=== PATIENT | female | born 1975 | race Caucasian/White ===

== ENCOUNTER 2020-06-13 17:42 | Emergency (ER) | payer BC, OTHER ==
[~2020-06-13] VITALS: Ht 160 cm; Wt 70.5 kg
[~2020-06-13 17:42] MED LIST: ALBU17IN INH; BUPR15TA PO; CELE20TA PO; COLA100C5 PO; DRIS50003 PO; FLUO20CA22 PO; LEVO75TA4 PO; OMEP1CAP73 PO; TRAZ-252 PO; TRAZ1TAB10 PO; XANA0.25 PO
[2020-06-13] MEDS ORDERED: KETOROLAC 30 MG/ML 1ML VIAL IV ONE (18:45)
[2020-06-13] MEDS ORDERED: NS 1,000 ML IV ONE (18:45)
[2020-06-13] MEDS ORDERED: DICYCLOMINE 10 MG CAP PO ONE (18:45)
[2020-06-13 18:53] LABS: BASO % 0.3 % (0.0-1.0); EOS # 0.1 10^3/uL (0.0-0.5); EOS % 0.6 % (0.0-3.0); HEMATOCRIT 42.1 % (36.0-47.0); HEMOGLOBIN 14.4 g/dl (12.0-15.5); LYMPH # 1.7 10^3/uL (1.5-5.0); LYMPH % 13.5 % (24.0-44.0); MEAN CORPUSCULAR HEMOGLOBIN 30.2 pg (27.0-33.0); MEAN CORPUSCULAR HGB CONC 34.2 g/dl (32.0-36.5); MEAN CORPUSCULAR VOLUME 88.3 fl (80.0-96.0); MONO # 0.8 10^3/uL (0.0-0.8); MONO % 6.3 % (0.0-5.0); NEUTROPHILS # 9.8 10^3/uL (1.5-8.5); NEUTROPHILS % 78.9 % (36.0-66.0); PLATELET COUNT, AUTOMATED 293 10^3/uL (150-450); RED BLOOD COUNT 4.77 10^6/uL (4.00-5.40); WHITE BLOOD COUNT 12.4 10^3/uL (4.0-10.0)
[2020-06-13 19:25] LABS: ALBUMIN 3.6 GM/DL (3.2-5.2); ALT/SGPT 33 U/L (12-78); BILIRUBIN,DIRECT < 0.1 MG/DL (0.0-0.2); BILIRUBIN,TOTAL 0.3 MG/DL (0.2-1.0); BLOOD UREA NITROGEN 21 MG/DL (7-18); CALCIUM LEVEL 8.8 MG/DL (8.5-10.1); CARBON DIOXIDE LEVEL 23 MEQ/L (21-32); CHLORIDE LEVEL 110 MEQ/L (98-107); CREATININE FOR GFR 0.68 MG/DL (0.55-1.30); GLOMERULAR FILTRATION RATE > 60.0 (>58); GLUCOSE, FASTING 91 MG/DL (70-100); LIPASE 134 U/L (73-393); POTASSIUM SERUM 3.9 MEQ/L (3.5-5.1); SODIUM LEVEL 141 MEQ/L (136-145); TOTAL PROTEIN 6.6 GM/DL (6.4-8.2)
[2020-06-13] MEDS ORDERED: ISOVUE-370 76% 100ML VIAL As Ordered ONE (19:54)
[2020-06-13] MEDS ORDERED: MORPHINE 4 MG/ML 1ML VIAL/SYRINGE (J2270) IV ONE (20:00)
--- NOTE | 2020-06-13 20:33 | REPVR ---
PROCEDURE INFORMATION: Exam: CT Abdomen And Pelvis With Contrast Exam date and time: 06/13/2020 8:08 PM Age: 45 years old Clinical indication: Abdominal pain; Additional info: Upper abd pain TECHNIQUE: Imaging protocol: Computed tomography of the abdomen and pelvis with intravenous contrast. Axial, coronal and sagittal reformatted images were created and reviewed. Radiation optimization: All CT scans at this facility use at least one of these dose optimization techniques: automated exposure control; mA and/or kV adjustment per patient size (includes targeted exams where dose is matched to clinical indication); or iterative reconstruction. Contrast material: ISO 370; Contrast volume: 100 ml; Contrast route: INTRAVENOUS (IV); COMPARISON: No relevant prior studies available. FINDINGS: Mediastinal space: Small hiatal hernia. Liver: Unremarkable. Gallbladder and bile ducts: No radiodense gallstones. No biliary ductal dilatation. Pancreas: Unremarkable. Spleen: Unremarkable. Adrenals: Unremarkable. Kidneys and ureters: No mass. No radiodense calculi. No hydronephrosis. Stomach and bowel: Status post gastric bypass surgery. No obstruction. No bowel wall thickening. No pneumatosis. Appendix: Status post appendectomy. Intraperitoneal space: No free fluid. No organized fluid collection. No free air. Vasculature: Unremarkable. No aneurysm. Lymph nodes: No pathologically enlarged lymph nodes. Bladder: Unremarkable. Reproductive: Status post hysterectomy. 1.4 x 1.6 cm fat-density right adnexal cystic lesion, likely a dermoid. Bones/joints: No acute osseous abnormality. Mild degenerative changes. Soft tissues: Unremarkable. IMPRESSION: 1. No CT evidence of acute intra-abdominal or pelvic pathology. 2. Additional findings, as above. Electronically signed by: Yuri Mandujano On 06/13/2020 20:33:38 PM
[2020-06-13] MEDS ORDERED: MORPHINE 2 MG/ML 1ML VIAL (J2270) IV ONE (21:30)
--- NOTE | 2020-06-13 22:23 | REPVR ---
PROCEDURE INFORMATION: Exam: US Pelvis Complete, Transabdominal and US Pelvis, Transvaginal and US Duplex Artery and Vein, Ovaries, Complete Exam date and time: 06/13/2020 10:02 PM Age: 45 years old Clinical indication: Pain and abnormal findings; Mass/lesion; Ovary; Abdominal pain; Other: Left flank; Prior surgery; Surgery date: 6+ months; Surgery type: Hysterectomy; Additional info: Abd pain/eval lesion on CT TECHNIQUE: Imaging protocol: Real-time transabdominal and transvaginal pelvic ultrasound (complete) with image documentation. Transvaginal imaging was used for better evaluation of the endometrium and adnexa. Real-time duplex ultrasound scan of the arterial and venous flow of the ovaries with B-mode, color Doppler flow and spectral waveform analysis. COMPARISON: CT ABD/PEL W/IV CONTRAST ONLY 06/13/2020 8:02 PM FINDINGS: Uterus/cervix: Surgically absent. Right ovary: 3.7 x 2 x 2.6 cm. 1.7 x 1.5 x 1.6 cm echogenic lesion, compatible with the dermoid seen on the prior CT scan. 1.3 x 1.4 x 1.6 cm follicle. Normal arterial and venous ovarian blood flow. Left ovary: 2.2 x 1.7 x 1.9 cm. Small follicle. No solid mass. Normal arterial and venous ovarian blood flow. Free fluid: None. Bladder: Normal. IMPRESSION: Small echogenic lesion in the right ovary, compatible with the dermoid seen on the prior CT scan. No evidence of ovarian torsion. Electronically signed by: Yuri Mandujano On 06/13/2020 22:22:50 PM
[2020-06-13] MEDS ORDERED: GI COCKTAIL 50ML BTL(HYOSCYAMINE/MAALOX/LIDOCAINE VISCOUS)(1:3:1) PO ONE (23:00)
[2020-06-14] MEDS ORDERED: MORPHINE 4 MG/ML 1ML VIAL/SYRINGE (J2270) IV ONE (00:45)
[2020-06-14 03:19] VITALS: BP 118/72
--- NOTE | 2020-07-23 15:13 | ED PDOC ---
Post-Departure Follow-Up danyel emanual faxed formal report of pelvic us for fu Pipo Robb MD Jul 23, 2020 15:13
== END 2020-06-14 03:21 | disposition short-term general hospital (02) ==
LOC: M ED 17:42
DX: K28.9 Gastrojejunal ulcer, unspecified as acute or chronic, without hemorrhage or perforation (principal); J45.909 Unspecified asthma, uncomplicated; F33.9 Major depressive disorder, recurrent, unspecified; F41.9 Anxiety disorder, unspecified; E03.9 Hypothyroidism, unspecified; K21.9 Gastro-esophageal reflux disease without esophagitis; Z98.84 Bariatric surgery status; Z79.899 Other long term (current) drug therapy
CPT/HCPCS: 36415; 74177; 76830; 76856; 80048; 80076; 81001; 83690; 85025; 93976; 96361; 96374; 96375; 96376; 99284; J1885; J2270; Q9967

== ENCOUNTER → 2020-08-06 | Outpatient (CLI) | payer OTHER ==
--- NOTE | 2020-08-22 12:47 | REP ---
PELVIC ULTRASOUND CLINICAL: Ovarian cyst for comparison. TECHNIQUE: Transabdominal ultrasound with color Doppler evaluation of the ovaries. COMPARISON: 06/13/2020. FINDINGS: Patient is noted to be status post hysterectomy. The bladder appears normal and measures approximately 8.3 x 4.7 x 8.5 cm. The left ovary measures 3.0 x 1.5 x 1.8 cm and includes 7 mm follicle. Vascularity was noted, but resistive index was not obtainable due to overlying bowel gas. The ovary measures 3.7 x 2.2 x 2.4 cm (RI 0.55) and again includes a 1.5 x 1.5 x 1.7 cm hyperechoic solid lesion, which may represent dermoid, as well as adjacent 1.0 x 0.9 x 1.0 cm cyst, which is decreased from prior examination. No pelvic fluid or adnexal mass lesion. IMPRESSION: Right ovary again demonstrates presumed dermoid along with decreased size to small cyst now measuring 1 cm maximal diameter. MTDD
== END ==
LOC: M RAD 07:31
PROVIDERS: ATTEND Obstetrics & Gynecology
DX: N83.201 Unspecified ovarian cyst, right side (principal)

== ENCOUNTER → 2020-08-06 | Outpatient (CLI) | payer OTHER ==
--- NOTE | 2020-08-22 12:45 | REP ---
HEPATOBILIARY SCAN WITH GALLBLADDER EJECTION FRACTION HISTORY: Epigastric pain. TECHNIQUE: 6.4 mCi Technetium-99m mebrofenin is injected and sequential anterior abdominal images are acquired for 60 minutes. Eight ounces of Ensure was ingested at the 60 minute rickey and an additional 60 minute acquisition is acquired with regions of interest drawn around the gallbladder. SCINTIGRAPHIC FINDINGS: The initial hepatocellular parenchymal uptake phase is homogeneous. Intrahepatic bile ducts are visualized first at 10 minutes and the gallbladder is first visualized at 15 minutes. There is normal washout from the liver parenchyma on adequate images. Washout is seen into the gallbladder and small intestine. The gallbladder ejection fraction is normal at 91%. IMPRESSION: Normal hepatobiliary scan and gallbladder ejection fraction. MTDD
== END ==
LOC: M RAD 07:29
PROVIDERS: ATTEND Surgery
DX: R10.13 Epigastric pain (principal)

== ENCOUNTER → 2021-10-09 | Outpatient (REF) | payer OTHER | LOC: M SFHCADAM 09:46 | PROVIDERS: ATTEND Physician Assistant | DX: Z20.828 Contact with and (suspected) exposure to other viral communicable diseases (principal) ==

== ENCOUNTER → 2022-05-20 | Outpatient (CLI) | payer OTHER | LOC: M ADAMS 08:50 | PROVIDERS: ATTEND Physician Assistant | DX: M25.551 Pain in right hip (principal); M16.11 Unilateral primary osteoarthritis, right hip ==

== ENCOUNTER → 2022-05-20 | Outpatient (REF) | payer OTHER ==
[2022-05-20 13:22] LABS: BASO % 0.5 % (0.0-1.0); EOS # 0.2 10^3/uL (0.0-0.5); EOS % 1.9 % (0.0-3.0); HEMATOCRIT 44.8 % (36.0-47.0); HEMOGLOBIN 14.6 g/dl (12.0-15.5); LYMPH # 1.8 10^3/uL (1.5-5.0); LYMPH % 22.5 % (24.0-44.0); MEAN CORPUSCULAR HEMOGLOBIN 29.2 pg (27.0-33.0); MEAN CORPUSCULAR HGB CONC 32.6 g/dl (32.0-36.5); MEAN CORPUSCULAR VOLUME 89.6 fl (80.0-96.0); MONO # 0.7 10^3/uL (0.0-0.8); MONO % 9.4 % (2.0-8.0); NEUTROPHILS # 5.1 10^3/uL (1.5-8.5); NEUTROPHILS % 65.4 % (36.0-66.0); PLATELET COUNT, AUTOMATED 304 10^3/uL (150-450); WHITE BLOOD COUNT 7.9 10^3/uL (4.0-10.0)
[2022-05-20 13:47] LABS: ALBUMIN 3.8 GM/DL (3.2-5.2); ALT/SGPT 24 U/L (12-78); BILIRUBIN,TOTAL 0.3 MG/DL (0.2-1.0); BLOOD UREA NITROGEN 22 MG/DL (7-18); CALCIUM LEVEL 9.1 MG/DL (8.5-10.1); CARBON DIOXIDE LEVEL 25 MEQ/L (21-32); CHLORIDE LEVEL 110 MEQ/L (98-107); CREATININE FOR GFR 0.65 MG/DL (0.55-1.30); GLOMERULAR FILTRATION RATE > 60.0 (>58); GLUCOSE, FASTING 80 MG/DL (70-100); RHEUMATOID FACTOR QUANT < 10.0 IU/ML (<15.0); SODIUM LEVEL 142 MEQ/L (136-145); TOTAL PROTEIN 6.9 GM/DL (6.4-8.2)
[2022-05-20 14:14] LABS: FOLATE 6.8 NG/ML; VITAMIN B12 LEVEL 347 PG/ML
[2022-05-20 14:51] LABS: ERYTHROCYTE SEDIMENTATION RATE 7 mm/hr (0-20)
[2022-05-21 21:07] LABS: ANA (HEP2) Positive (.)
== END ==
LOC: M SFHCADAM 08:29
PROVIDERS: ATTEND Physician Assistant
DX: M25.551 Pain in right hip (principal); M13.0 Polyarthritis, unspecified; E55.9 Vitamin D deficiency, unspecified; Z98.84 Bariatric surgery status

== ENCOUNTER → 2023-07-15 | Outpatient (CLI) | payer BC | LOC: M WHC 12:53 | PROVIDERS: ATTEND Obstetrics & Gynecology | DX: Z12.31 Encounter for screening mammogram for malignant neoplasm of breast (principal); Z13.820 Encounter for screening for osteoporosis; M85.89 Other specified disorders of bone density and structure, multiple sites ==